=== PATIENT | male | born 1990 | race African-American/Black ===

== ENCOUNTER 2016-07-22 04:38 | Inpatient (IN) | payer MEDICAID ==
[~2016-07-22] VITALS: Ht 175.3 cm; Wt 57.6 kg
[2016-07-22] MEDS ORDERED: SODIUM CHLORIDE 0.9% 1,000 ML IVB ONE (04:41)
[2016-07-22] MEDS ORDERED: LORazepam 2MG/ML-1ML VIAL ONE ×2 (05:06→08:33)
[2016-07-22] MEDS ORDERED: LORazepam 2MG/ML-1ML VIAL IV ONE ×3 (05:15→09:00)
[2016-07-22] MEDS ORDERED: diphenhdrAMINE HCL 50 MG/1 ML VL ONE (05:53)
[2016-07-22 05:57] LABS: Urine Bilirubin Negative (Negative); Urine Color Yellow (Yellow); Urine Glucose Normal (Normal); Urine Granular Cast FEW /lpf (0); Urine Hyaline Cast FEW /lpf (0 - 2); Urine Nitrite Negative (Negative); Urine RBC 113 /hpf (0 - 3); Urine Urobilinogen Normal (Negative); Urine pH 6.5 (5.0-8.0)
[2016-07-22 05:58] LABS: Urine Blood 3+ /uL (Negative); Urine Ketone 3+ (Negative)
[2016-07-22] MEDS ORDERED: diphenhdrAMINE HCL 50 MG/1 ML VL IV ONE (06:00)
[2016-07-22 06:11] LABS: Hematocrit 44.7 % (41.0-53.0); Hemoglobin 14.8 g/dL (13.5-17.5); Mean Corpuscular Hemoglobin 30.2 pg (28.0-32.0); Mean Corpuscular Volume 91.4 fL (80.0-100.0); Mean Platelet Volume 11.2 fL (7.4-10.4); Platelet Count (auto) 150 10^3/uL (140-450); Red Cell Distribution Width 13.4 % (11.6-16.0); SUSPECT VIEW TRANSMISSION; White Blood Cell 17.5 10^3/uL (4.4-10.8)
[2016-07-22 06:18] LABS: INR 0.96 (0.9-1.15); Partial Thromboplastin Time 20.7 sec (22.64-33.71); Prothrombin Time 9.9 sec (9.37-12.3)
[2016-07-22 06:24] LABS: Anion Gap 23 (5-15); Aspartate Aminotransferase 174 U/L (15-37); BUN/Creatinine Ratio 10.6; Blood Urea Nitrogen 10 mg/dL (7-18); Calcium 8.3 mg/dL (8.5-10.1); Carbon Dioxide 15 mmol/L (21-32); Chloride 99 mmol/L (98-107); GFR African American 123 mL/min; GFR Non-African American 102 mL/min; Glucose 58 mg/dL (74-106); Magnesium 2.2 mg/dL (1.6-2.6); Potassium 3.9 mmol/L (3.5-5.1); Sodium 137 mmol/L (136-145)
[2016-07-22 06:27] LABS: Alkaline Phosphatase 86 U/L (45-117); Bilirubin, Total 1.4 mg/dL (0.2-1.0); Total Protein 7.8 g/dL (6.4-8.2)
[2016-07-22] MEDS ORDERED: SODIUM CHLORIDE 0.9% 2,000 ML IV ONE (06:45)
[2016-07-22] MEDS ORDERED: DEXTROSE (50%) 50ML SYRG IV ONE (06:45)
[2016-07-22] MEDS ORDERED: HALOPERIDOL LACTATE 5 MG/ML INJ VIAL IM ONE (06:45)
[2016-07-22 06:47] LABS: Metamyelocytes % 0; Myelocytes % 0; Promyelocytes % 0; Reactive Lymphocytes 0
[2016-07-22 07:08] LABS: Lactic Acid 2.7 mmol/L (0.4-2.0)
[2016-07-22 07:43] LABS: REFLEX LACTIC ACID YES OR NO YES
[2016-07-22 07:47] LABS: Platelet Estimate Adequate; RBC Morphology Normal
[2016-07-22] MEDS ORDERED: ACETAMINOPHEN 500 MG TAB PO PRN (13:45)
[2016-07-22] MEDS ORDERED: SODIUM CHLORIDE 0.9% 1,000 ML IV ONE (13:45)
[2016-07-22] MEDS ORDERED: TEMAZEPAM 15 MG CAP PO PRN (13:45)
[2016-07-22] MEDS ORDERED: PROMETHAZINE HCL 25 MG/ML 1ML IV PRN (13:45)
[2016-07-22] MEDS ORDERED: cefTRIAXone 1GM/50ML D5W 50 ML IV ONE (13:45)
[2016-07-22] MEDS ORDERED: LORazepam 2MG/ML-1ML VIAL IV PRN ×2 (13:45)
[2016-07-22] MEDS ORDERED: HYDROcodone-ACET 5/325MG TAB PO PRN (13:45)
[2016-07-22] MEDS ORDERED: MORPHINE SULF INJ 2 MG/ML SYRINGE 1ML IV PRN ×2 (13:45)
[2016-07-22] MEDS ORDERED: NITROGLYCERIN 0.4 MG SL TAB SL PRN (13:45)
[2016-07-22] MEDS ORDERED: ALBUTEROL SULF 2.5 MG/0.5ML(0.5%) NEB SOLN NEB PRN (13:45)
[2016-07-22] MEDS ORDERED: LACTULOSE 20Gm/30ML SOLN PO PRN (13:45)
[2016-07-22] MEDS: ENOXAPARIN SOD 40 MG/0.4 ML SYRINGE SC SCH (14:05)
[2016-07-22] MEDS: SODIUM CHLORIDE 0.9% 1,000 ML IV SCH ×2 (14:47→23:00)
[2016-07-22] MEDS ORDERED: LEVETIRACETAM INJ 500 MG in SODIUM CHL 0.9% 100 ML IV ONE (16:30)
[2016-07-22] MEDS ORDERED: DEXTROSE (50%) 50ML SYRG IV PRN (20:15)
[2016-07-22] MEDS: ACCU-CHEK COMFORT CURVE STRIP VI SCH (22:16)
[2016-07-22] MEDS: LEVETIRACETAM 500 MG TAB PO SCH (22:16)
[2016-07-22 22:22] VITALS: BP 147/90
[2016-07-23 00:02] VITALS: BP 150/95
[2016-07-23] MEDS: ACCU-CHEK COMFORT CURVE STRIP VI SCH ×4 (02:11→14:00)
[2016-07-23 03:52] VITALS: BP 150/95
[2016-07-23 04:00] VITALS: BP 148/91
[2016-07-23] MEDS: SODIUM CHLORIDE 0.9% 1,000 ML IV SCH (05:26)
[2016-07-23 06:36] LABS: Basophils # (auto) 0 uL; Basophils % (auto) 0.3 % (0.0-2.0); Eosinophils # (auto) 0 uL; Eosinophils % (auto) 0.1 % (0.0-7.0); Hematocrit 44.6 % (41.0-53.0); Hemoglobin 14.3 g/dL (13.5-17.5); Lymphocytes % (auto) 7.4 % (10.0-50.0); Mean Corpuscular Hemoglobin 29.8 pg (28.0-32.0); Mean Corpuscular Volume 93.3 fL (80.0-100.0); Mean Platelet Volume 9.9 fL (7.4-10.4); Monocytes # (auto) 1.1 uL; Monocytes % (auto) 7.7 % (0.0-12.0); Neutrophils % (auto) 84.5 % (37.0-80.0); Platelet Count (auto) 107 10^3/uL (140-450); Red Cell Distribution Width 12.5 % (11.6-16.0); SUSPECT VIEW TRANSMISSION; White Blood Cell 14.1 10^3/uL (4.4-10.8)
[2016-07-23 06:53] LABS: Albumin 3.1 g/dL (3.4-5.0); BUN/Creatinine Ratio 14.5; Bilirubin, Total 1.1 mg/dL (0.2-1.0); Calcium 8.6 mg/dL (8.5-10.1); Potassium 3.4 mmol/L (3.5-5.1); Total Protein 6.8 g/dL (6.4-8.2)
[2016-07-23 07:49] VITALS: BP 153/93
[2016-07-23] MEDS ORDERED: cefTRIAXone 1GM/50ML D5W 50 ML IV SCH (09:00)
[2016-07-23] MEDS: ENOXAPARIN SOD 40 MG/0.4 ML SYRINGE SC SCH (09:27)
[2016-07-23] MEDS: LEVETIRACETAM 500 MG TAB PO SCH (09:27)
[2016-07-23] MEDS ORDERED: SODIUM CHLORIDE 0.9% 1,000 ML IV SCH (10:01)
[2016-07-23 10:24] LABS: Amylase 96 U/L (25-115)
[2016-07-23 12:00] VITALS: BP 140/118
[2016-07-23 12:30] VITALS: BP 159/103
== END 2016-07-23 15:30 | disposition left against medical advice (07) | DRG 351 ==
LOC: ER 04:44 → TELE 04:45 → DOU IN ICU 22:05 → TELE-CENTR 07-23 14:22
PROVIDERS: ADMIT Internal Medicine; ATTEND Internal Medicine
DX: M62.82 Rhabdomyolysis (principal); G93.49 Other encephalopathy; R56.9 Unspecified convulsions; E87.2 Acidosis; J45.909 Unspecified asthma, uncomplicated; E16.2 Hypoglycemia, unspecified; D72.829 Elevated white blood cell count, unspecified; F12.10 Cannabis abuse, uncomplicated; Z72.89 Other problems related to lifestyle; Z88.8 Allergy status to other drugs, medicaments and biological substances; Z83.3 Family history of diabetes mellitus
CPT/HCPCS: 36415; 51702; 70450; 71010; 76775; 80053; 80061; 80320; 81001; 82150; 82550; 82962; 83036; 83605; 83690; 83735; 84484; 85007; 85025; 85027; 85610; 85652; 85730; 87081; 87086; 93005; 94761; 96361; 96365; 96367; 96375; 96376; G0434; J0696

== ENCOUNTER 2016-12-02 11:49 | Emergency (ER) | payer MEDICAID ==
[~2016-12-02] VITALS: Ht 180.3 cm; Wt 68.0 kg
[2016-12-02] MEDS ORDERED: LORazepam 0.5 MG TAB PO ONE (13:45)
[2016-12-02] MEDS ORDERED: cloNIDine HCL 0.1 MG TAB PO ONE (13:45)
[2016-12-02] MEDS ORDERED: LABETALOL HCL 5 MG/ML 4ML SYRINGE IV ONE ×2 (16:15)
[2016-12-02] MEDS ORDERED: METOPROLOL TARTRATE 1MG/1ML-5ML VIAL IV ONE (17:15)
[2016-12-02 17:46] VITALS: BP 161/114
[2016-12-02] MEDS ORDERED: hydrALAZINE HCL 20 MG/ML VL IV ONE (18:15)
== END 2016-12-02 18:54 ==
LOC: ER 11:49
DX: I10 Essential (primary) hypertension (principal); J45.909 Unspecified asthma, uncomplicated; F17.210 Nicotine dependence, cigarettes, uncomplicated; F12.10 Cannabis abuse, uncomplicated; Z88.8 Allergy status to other drugs, medicaments and biological substances
CPT/HCPCS: 96374; 96375; 99284; J0360; J3490

== ENCOUNTER 2018-02-26 13:05 | Emergency (ER) | payer MEDICAID ==
[~2018-02-26] VITALS: Ht 180.3 cm; Wt 59.5 kg
[2018-02-26] MEDS ORDERED: SODIUM CHLORIDE 0.9% 1,000 ML IV ONE (13:25)
[2018-02-26] MEDS ORDERED: ASPirin 81 mg TAB PO ONE (13:30)
[2018-02-26 13:56] LABS: Urine Bacteria NONE SEEN /hpf (None Seen); Urine Blood Negative /uL (Negative); Urine Mucus FEW (None Seen); Urine Specific Gravity 1.025 (1.001-1.035); Urine WBC 1 /hpf (0 - 3)
[2018-02-26 14:12] LABS: Amphetamine Screen, Urine NEGATIVE (NEGATIVE); Barbiturate Scree,Urine NEGATIVE (NEGATIVE); Benzodiazephine Screen, Urine NEGATIVE (NEGATIVE); Cannabinoid Screen, Urine POSITIVE (NEGATIVE); Cocaine Screen, Urine NEGATIVE (NEGATIVE); Opiate Scree,Urine NEGATIVE (NEGATIVE); Phencyclidine Screen, Urine POSITIVE (NEGATIVE)
[2018-02-26 14:55] LABS: Basophils # (auto) 0.1 uL; Basophils % (auto) 1.7 % (0.0-2.0); Eosinophils # (auto) 0 uL; Eosinophils % (auto) 0.1 % (0.0-7.0); Hematocrit 44.2 % (41.0-53.0); Hemoglobin 15.4 g/dL (13.5-17.5); Lymphocytes # (auto) 1.1 uL; Lymphocytes % (auto) 22.7 % (10.0-50.0); Mean Corpuscular Hemoglobin 32.2 pg (28.0-32.0); Mean Corpuscular Hgb Conc. 34.9 g/dL (32.0-36.0); Mean Corpuscular Volume 92.3 fL (80.0-100.0); Monocytes # (auto) 0.2 uL; Monocytes % (auto) 5.2 % (0.0-12.0); Neutrophils # (auto) 3.4 uL; Neutrophils % (auto) 70.3 % (37.0-80.0); Nucleated Red Blood Cells % 0.1 %; Platelet Count (auto) 275 10^3/uL (140-450); Red Blood Cells 4.79 10^6/uL (4.5-5.90); Red Cell Distribution Width 14.1 % (11.8-14.3); White Blood Cell 4.8 10^3/uL (4.4-10.8)
[2018-02-26 15:19] LABS: Alanine Aminotransferase 64 U/L (16-61); Albumin 4.2 g/dL (3.4-5.0); Alkaline Phosphatase 78 U/L (45-117); Anion Gap 11 (5-15); Aspartate Aminotransferase 129 U/L (15-37); BUN/Creatinine Ratio 19.1; Bilirubin, Total 0.3 mg/dL (0.2-1.0); Blood Urea Nitrogen 13 mg/dL (7-18); Calcium 8.2 mg/dL (8.5-10.1); Carbon Dioxide 25 mmol/L (21-32); Chloride 106 mmol/L (98-107); GFR African American 177 mL/min; GFR Non-African American 147 mL/min; Glucose 84 mg/dL (74-106); Potassium 3.5 mmol/L (3.5-5.1); Sodium 142 mmol/L (136-145); Total Protein 8.2 g/dL (6.4-8.2)
[2018-02-26] MEDS ORDERED: THIAMINE 100mg/ml INJ (200mg/2ml VIAL) IV ONE (15:30)
[2018-02-26 15:57] VITALS: BP 165/99
== END 2018-02-26 17:06 | disposition home or self-care (01) ==
LOC: ER 13:08
DX: R07.89 Other chest pain (principal); F12.10 Cannabis abuse, uncomplicated; F16.10 Hallucinogen abuse, uncomplicated; J45.909 Unspecified asthma, uncomplicated; F10.10 Alcohol abuse, uncomplicated; R42 Dizziness and giddiness; F17.210 Nicotine dependence, cigarettes, uncomplicated
CPT/HCPCS: 36415; 71046; 80053; 80307; 81001; 84484; 85025; 93005; 96361; 96374; 99285; J3411; J7030

== ENCOUNTER 2022-11-21 17:07 | Inpatient (IN) | payer MEDICAID ==
[~2022-11-21] VITALS: Ht 182.9 cm; Wt 58.7 kg
[2022-11-21 18:05] LABS: Basophils # (auto) 0 10 ^3/uL (0-0.2); Basophils % (auto) 0.4 % (0.0-2.0); Eosinophils # (auto) 0 10 ^3/uL (0-0.8); Eosinophils % (auto) 0.1 % (0.0-7.0); Hematocrit 38.1 % (41.0-53.0); Hemoglobin 12.6 g/dL (13.5-17.5); Lymphocytes # (auto) 2.6 10 ^3/uL (0.4-5.4); Lymphocytes % (auto) 36.5 % (10.0-50.0); Mean Corpuscular Hemoglobin 27.1 pg (28.0-32.0); Mean Corpuscular Hgb Conc. 33.1 g/dL (32.0-36.0); Mean Corpuscular Volume 81.9 fL (80.0-100.0); Monocytes # (auto) 0.4 10 ^3/uL (0-1.3); Monocytes % (auto) 5.5 % (0.0-12.0); Neutrophils # (auto) 4.1 10 ^3/uL (1.6-8.6); Neutrophils % (auto) 57.5 % (37.0-80.0); Nucleated Red Blood Cells % 0.2 %; Red Blood Cells 4.66 10^6/uL (4.5-5.90); Red Cell Distribution Width 18.7 % (11.8-14.3); White Blood Cell 7.1 10^3/uL (4.4-10.8)
[2022-11-21 18:25] LABS: Alanine Aminotransferase 33 U/L (16-61); Albumin 3.9 g/dL (3.4-5.0); Anion Gap 11 (5-15); Aspartate Aminotransferase 26 U/L (15-37); Blood Urea Nitrogen 7 mg/dL (7-18); Calcium 9.1 mg/dL (8.5-10.1); Carbon Dioxide 20 mmol/L (21-32); Chloride 103 mmol/L (98-107); GFR African American 166 mL/min; GFR Non-African American 137 mL/min; Glucose 96 mg/dL (74-106); Lipase 249 U/L (73-393); Sodium 134 mmol/L (136-145)
[2022-11-21 18:28] LABS: Alkaline Phosphatase 88 U/L (45-117); Bilirubin, Total 0.7 mg/dL (0.2-1.0); Total Protein 8.2 g/dL (6.4-8.2)
[2022-11-21 19:00] LABS: Magnesium 2.1 mg/dL (1.6-2.6)
[2022-11-21] MEDS ORDERED: SODIUM CHLORIDE 0.9% 1,000 ML IV ONE (19:00)
[2022-11-21] MEDS ORDERED: THIAMINE HCL 100 MG TAB PO ONE (20:00)
[2022-11-21] MEDS ORDERED: ONDANSETRON HCL 4 MG/2 ML VIAL IV ONE (20:15)
[2022-11-21] MEDS ORDERED: POTASSIUM CHL 20 Meq TABLET PO ONE (20:15)
[2022-11-21 20:29] LABS: Urine Bacteria NONE SEEN /hpf (None Seen); Urine Blood Negative /uL (Negative); Urine Hyaline Cast FEW /lpf (0 - 2); Urine Mucus FEW (None Seen); Urine Specific Gravity 1.028 (1.001-1.035); Urine WBC 3 /hpf (0 - 3)
[2022-11-21] MEDS ORDERED: fentaNYL CITRATE 100 MCG/2 ML VL IV ONE (21:00)
[2022-11-21] MEDS ORDERED: TEMAZEPAM 15 MG CAP PO PRN (21:15)
[2022-11-21] MEDS ORDERED: ACETAMINOPHEN 325 MG TAB PO PRN (21:15)
[2022-11-21] MEDS ORDERED: PANTOPRAZOLE 40 MG TAB PO ONE (21:15)
[2022-11-21] MEDS ORDERED: ONDANSETRON HCL 4 MG/2 ML VIAL IV PRN (21:15)
[2022-11-21 22:02] LABS: Alcohol, Urine < 3.0 mg/dL (0-10); Amphetamine Screen, Urine NEGATIVE (NEGATIVE); Barbiturate Scree,Urine NEGATIVE (NEGATIVE); Benzodiazephine Screen, Urine NEGATIVE (NEGATIVE); Cocaine Screen, Urine NEGATIVE (NEGATIVE); Opiate Scree,Urine NEGATIVE (NEGATIVE); Phencyclidine Screen, Urine NEGATIVE (NEGATIVE)
[2022-11-21 22:18] LABS: Cannabinoid Screen, Urine POSITIVE (NEGATIVE)
[2022-11-21] MEDS: MORPHINE SULFATE INJ 2 MG/ml SYRG IV PRN (23:40)
[2022-11-22] MEDS: HYDROcodone-ACET 5/325MG TAB PO PRN ×4 (02:05→23:24)
[2022-11-22] MEDS: cloNIDine HCL 0.1 MG TAB PO PRN (02:05)
[2022-11-22] MEDS: MORPHINE SULFATE INJ 2 MG/ml SYRG IV PRN ×2 (05:54→19:38)
[2022-11-22 06:26] LABS: Potassium 3.5 mmol/L (3.5-5.1)
[2022-11-22 06:36] LABS: Albumin 3.3 g/dL (3.4-5.0); BUN/Creatinine Ratio 9.7 (10.0-20.0); Bilirubin, Total 0.7 mg/dL (0.2-1.0); Calcium 7.8 mg/dL (8.5-10.1); Total Protein 6.3 g/dL (6.4-8.2)
[2022-11-22] MEDS ORDERED: GADOTERATE MEG 10 MMOL/20ml INJ (0.5MMOL/ml) IV ONE (08:24)
[2022-11-22 10:00] VITALS: BP 154/100
[2022-11-22] MEDS: amLODIPine BESYLATE 5 MG TAB PO SCH (10:07)
[2022-11-22] MEDS: PANTOPRAZOLE 40 MG TAB PO SCH (10:08)
[2022-11-22] MEDS ORDERED: AMLO1TAB22 PO (10:12)
[2022-11-22] MEDS ORDERED: [UNRECOGNIZED DRUG - CODE] NAS (10:12)
[2022-11-22] MEDS: PANCREATIC ENZYMES 4200 UNIT CAP PO SCH ×2 (12:00→18:00)
[2022-11-22 13:00] VITALS: BP 135/96
[2022-11-22 14:07] VITALS: BP 142/96
[2022-11-22] MEDS ORDERED: LACTULOSE 20Gm/30ML SOLN PO ONE (14:45)
[2022-11-22] MEDS: SODIUM CHLORIDE 0.9% 1,000 ML IV SCH ×2 (15:10→23:17)
[2022-11-22 16:57] VITALS: BP 137/93
[2022-11-22 20:00] VITALS: BP 149/100
[2022-11-22 22:00] VITALS: BP 149/100
[2022-11-23] MEDS: MORPHINE SULFATE INJ 2 MG/ml SYRG IV PRN ×3 (02:27→17:44)
[2022-11-23 04:54] VITALS: BP 144/107
[2022-11-23] MEDS: SODIUM CHLORIDE 0.9% 1,000 ML IV SCH ×3 (06:55→23:50)
[2022-11-23] MEDS: HYDROcodone-ACET 5/325MG TAB PO PRN ×3 (06:57→20:12)
[2022-11-23] MEDS: PANCREATIC ENZYMES 4200 UNIT CAP PO SCH ×3 (08:00→19:32)
[2022-11-23 08:45] VITALS: BP 148/103
[2022-11-23] MEDS: amLODIPine BESYLATE 5 MG TAB PO SCH (10:11)
[2022-11-23] MEDS: PANTOPRAZOLE 40 MG TAB PO SCH (10:11)
[2022-11-23] MEDS: cloNIDine HCL 0.1 MG TAB PO PRN (12:39)
[2022-11-23 12:45] VITALS: BP 159/100
[2022-11-23 17:00] VITALS: BP 152/108
[2022-11-23 20:00] VITALS: BP 108/76
[2022-11-23 22:00] VITALS: BP 108/108
[2022-11-24] MEDS: HYDROcodone-ACET 5/325MG TAB PO PRN ×3 (00:21→16:10)
[2022-11-24] MEDS: MORPHINE SULFATE INJ 2 MG/ml SYRG IV PRN ×2 (04:48→12:28)
[2022-11-24 05:00] VITALS: BP 162/110
[2022-11-24] MEDS: SODIUM CHLORIDE 0.9% 1,000 ML IV SCH ×2 (07:40→15:05)
[2022-11-24 09:00] VITALS: BP 145/76
[2022-11-24] MEDS: PANCREATIC ENZYMES 4200 UNIT CAP PO SCH ×3 (09:53→18:35)
[2022-11-24] MEDS: amLODIPine BESYLATE 5 MG TAB PO SCH (09:53)
[2022-11-24] MEDS: PANTOPRAZOLE 40 MG TAB PO SCH (09:53)
[2022-11-24] MEDS ORDERED: HYDR-4902 PO (10:44)
[2022-11-24] MEDS ORDERED: PANC24002 (10:46)
[2022-11-24 13:00] VITALS: BP 126/88
[2022-11-24 16:38] VITALS: BP 156/91
[2022-11-24 17:15] VITALS: BP 145/76
== END 2022-11-24 19:09 | disposition home or self-care (01) | DRG 282 ==
LOC: EDBD 17:07 → ER 17:07 → OVERFLOW 21:18 → CENTRAL 11-22 09:34
PROVIDERS: ADMIT Nurse Practitioner; ATTEND Internal Medicine
DX: K86.89 Other specified diseases of pancreas (principal); K76.0 Fatty (change of) liver, not elsewhere classified; E87.6 Hypokalemia; K86.2 Cyst of pancreas; F10.10 Alcohol abuse, uncomplicated; F12.10 Cannabis abuse, uncomplicated; F17.210 Nicotine dependence, cigarettes, uncomplicated; I10 Essential (primary) hypertension; J45.909 Unspecified asthma, uncomplicated; Z82.49 Family history of ischemic heart disease and other diseases of the circulatory system
CPT/HCPCS: 36415; 71045; 74176; 74181; 80053; 80307; 80320; 81001; 83690; 83735; 84484; 85025; 86301; 93005; 96361; 96374; G0378; J2405

== ENCOUNTER 2022-12-28 23:33 | Emergency (ER) | payer MEDICAID ==
[~2022-12-28] VITALS: Ht 182.9 cm; Wt 63.6 kg
[~2022-12-28 23:33] MED LIST: AMLO1TAB22 PO; HYDR-4902 PO; PANC24002; [UNRECOGNIZED DRUG - CODE] NAS
[2022-12-29 00:57] LABS: Basophils # (auto) 0 10 ^3/uL (0-0.2); Eosinophils # (auto) 0 10 ^3/uL (0-0.8); Lymphocytes # (auto) 1.7 10 ^3/uL (0.4-5.4); Mean Corpuscular Volume 78.3 fL (80.0-100.0); Neutrophils # (auto) 11.8 10 ^3/uL (1.6-8.6); White Blood Cell 14.4 10^3/uL (4.4-10.8)
[2022-12-29 00:59] LABS: Basophils % (auto) 0.2 % (0.0-2.0); Hematocrit 39.5 % (41.0-53.0); Hemoglobin 12.7 g/dL (13.5-17.5); Mean Corpuscular Hemoglobin 25.2 pg (28.0-32.0); Mean Corpuscular Hgb Conc. 32.2 g/dL (32.0-36.0); Monocytes # (auto) 0.8 10 ^3/uL (0-1.3); Monocytes % (auto) 5.3 % (0.0-12.0); Neutrophils % (auto) 82.5 % (37.0-80.0); Nucleated Red Blood Cells % 0.1 %; Red Blood Cells 5.05 10^6/uL (4.5-5.90); Red Cell Distribution Width 17.7 % (11.8-14.3)
[2022-12-29 01:21] LABS: Albumin 4.5 g/dL (3.4-5.0); BUN/Creatinine Ratio 10.6 (10.0-20.0); Calcium 9.8 mg/dL (8.5-10.1); Potassium 3.2 mmol/L (3.5-5.1)
[2022-12-29 01:24] LABS: Bilirubin, Total 0.5 mg/dL (0.2-1.0); Total Protein 8.5 g/dL (6.4-8.2)
[2022-12-29 02:05] LABS: Urine Bacteria NONE SEEN /hpf (None Seen); Urine Blood Negative /uL (Negative); Urine Hyaline Cast FEW /lpf (0 - 2); Urine Mucus FEW (None Seen); Urine WBC 11 /hpf (0 - 3)
[2022-12-29] MEDS ORDERED: CIPR-173 PO (06:08)
[2022-12-29] MEDS ORDERED: PERCOT PO (06:08)
[2022-12-29 06:30] VITALS: BP 122/96
== END 2022-12-29 06:30 | disposition home or self-care (01) ==
LOC: ER 23:33
DX: K86.2 Cyst of pancreas (principal); J45.909 Unspecified asthma, uncomplicated; I10 Essential (primary) hypertension; F17.210 Nicotine dependence, cigarettes, uncomplicated; F12.10 Cannabis abuse, uncomplicated; Z88.8 Allergy status to other drugs, medicaments and biological substances
CPT/HCPCS: 36415; 74176; 80053; 81001; 83690; 85025; 93005